=== PATIENT | male | born 1965 | race American Indian/Alaskan Native ===

== ENCOUNTER 2019-02-08 18:02 | Emergency (ER) | payer OTHER ==
--- NOTE | 2019-02-08 18:56 | EDM.PDOC ---
ED HPI GENERAL MEDICAL PROBLEM - General Chief Complaint: Back Pain or Injury Stated Complaint: BACK PAIN, BLEEDING Time Seen by Provider: 02/08/19 18:37 Source of Information: Reports: Patient History Limitations: Reports: No Limitations - History of Present Illness INITIAL COMMENTS - FREE TEXT/NARRATIVE: 53-year-old man with long-standing history of chronic lumbar back pain and right lumbar radiculopathy since accident in 2001 who reports that over the past year he has had increasing lower back pain and more symptoms of discomfort and numbness in his right leg. Today he reports the pain as an 8-9/10. It is worse with movement and with activity and also worse with palpation. He's had no bowel or bladder control problems. He has had some intermittent bright red blood in his stools (he reports dripping blood in the toilet after stools and with blood with wiping and pain and irritation in his perianal area) for some time. He denies any nausea or vomiting. He has no abdominal pain. He has had no fever. There has been no recent injury. The pain is a sharp, aching and throbbing pain with some spasms in his muscles in his back. He has taken nothing for his pain today. There are no other associated signs or symptoms. There are no other modifying factors. Onset: Other (Ongoing since 2001 but worsening over the past year per the patient.) Duration: Getting Worse Location: Reports: Back, Lower Extremity, Right Quality: Reports: Ache, Sharp, Throbbing Severity: Moderate (to bear) Improves with: Reports: Rest Worsens with: Reports: Other (Palpation), Movement Context: Reports: Other (As above) Associated Symptoms: Reports: No Other Symptoms Treatments [employer]: Reports: Other (see below) (Nothing) lower back Pain Score (Numeric/FACES): 10 - Related Data Allergies Allergy/AdvReac Type Severity Reaction Status Date / Time No Known Allergies Allergy Verified 02/08/19 18:15 Home Meds: Home Meds Aspirin [Children's Aspirin] 81 mg PO DAILY 05/20/13 [History] Omeprazole 20 mg PO DAILY 05/20/13 [History] Cyclobenzaprine [Flexeril] 10 mg PO TID PRN #15 tab 02/08/19 [Rx] Past Medical History HEENT History: Reports: Impaired Vision Cardiovascular History: Reports: CAD, High Cholesterol, Hypertension Gastrointestinal History: Reports: Cholelithiasis Psychiatric History: Reports: Addiction, Anxiety - Past Surgical History Cardiovascular Surgical History: Reports: Coronary Artery Stent Musculoskeletal Surgical History: Reports: ORIF (Right lower leg and right elbow ) Social & Family History - Family History Family Medical History: Noncontributory - Tobacco Use Smoking Status *Q: Former Smoker (States he quit 4-5 days ago) - Caffeine Use Caffeine Use: Reports: None - Alcohol Use Alcohol Use History: Yes Alcohol Use Comment: Has been heavy at times but states he has had no alcohol for the past 2 weeks. - Living Situation & Occupation Social History Comment: He is here with other family members including another person being seen for a painful condition today. ED ROS GENERAL - Review of Systems Review Of Systems: See Below Constitutional: Reports: No Symptoms HEENT: Reports: No Symptoms Respiratory: Reports: No Symptoms Cardiovascular: Reports: No Symptoms GI/Abdominal: Reports: Other (Bright red blood after stool with perianal irritation and discomfort with wiping as above.) : Reports: No Symptoms Musculoskeletal: Reports: Back Pain Skin: Reports: No Symptoms Neurological: Reports: Other (Right lumbar radiculopathy type symptoms) Psychiatric: Reports: Anxiety Hematologic/Lymphatic: Reports: No Symptoms Immunologic: Reports: No Symptoms ED EXAM,LOWER BACK PAIN/INJURY - Physical Exam Exam: See Below Exam Limited By: No Limitations General Appearance: Alert, WD/WN, No Apparent Distress Eye Exam: Bilateral Eye: EOMI, Normal Inspection, PERRL Ears: Normal External Exam Nose: Normal Inspection, Normal Mucosa, No Blood Throat/Mouth: Normal Inspection, Normal Lips, Normal Oropharynx, Normal Voice, No Airway Compromise Head: Atraumatic, Normocephalic Neck: Normal Inspection, Supple, Non-Tender, Full Range of Motion Respiratory/Chest: No Respiratory Distress, Lungs Clear, Normal Breath Sounds, No Accessory Muscle Use, Chest Non-Tender Cardiovascular: Normal Peripheral Pulses, Regular Rate, Rhythm, No JVD GI/Abdominal: Normal Bowel Sounds, Soft, Non-Tender, No Distention Back Exam: Normal Inspection, Muscle Spasm, Paraspinal Tenderness (In his lumbar back) Extremities: Normal Inspection, Normal Range of Motion, Non-Tender, No Pedal Edema, Normal Capillary Refill Neurological: Alert, Normal Mood/Affect, Normal Dorsiflexion, CN II-XII Intact, Normal Plantar Flexion, Normal Gait (He ambulated into the emergency department well without any problems.), No Motor/Sensory Deficits, Oriented x 3 Skin Exam: Warm, Dry, Intact, Normal Color, No Rash Course - Vital Signs Last Recorded V/S: Last Vital Signs Temp 36.7 C 02/08/19 18:15 Pulse 59 L 02/08/19 19:26 Resp 16 02/08/19 19:26 BP 150/79 H 02/08/19 19:26 Pulse Ox 97 02/08/19 19:26 - Orders/Labs/Meds Meds: Medications Discontinued Medications Generic Name Dose Route Start Last Admin Trade Name Freq PRN Reason Stop Dose Admin Cyclobenzaprine HCl 10 mg 02/08/19 18:58 02/08/19 19:03 Flexeril PO 02/08/19 18:59 10 mg ONETIME ONE Administration Ketorolac Tromethamine 60 mg 02/08/19 18:58 02/08/19 19:03 Toradol IM 02/08/19 18:59 60 mg ONETIME ONE Administration - Re-Assessments/Exams Free Text/Narrative Re-Assessment/Exam: 02/08/19 18:50: Patient with long-standing lower back pain since 2001. He reports a worsening of his back pain over the past year. His exam shows no evidence of weakness. He has had no urinary retention or bowel incontinence. He does report some constipation with some bright red blood with wiping and pain with wiping that is most probably hemorrhoids. He has been having this for some time as well. I have stressed with the patient that he needs to establish with a primary doctor for this chronic issue with his back and also his intermittent perianal bleeding. I have given the patient an injection of Toradol for is pain and Flexeril 10 mg by mouth. Departure - Departure Time of Disposition: 19:00 Disposition: Home, Self-Care 01 Condition: Good (Stable) Clinical Impression: Right lumbar radiculopathy, Rectal bleeding Chronic lower back pain Qualifiers: Back pain laterality: right Sciatica presence: with sciatica Sciatica laterality: sciatica of right side Qualified Code(s): M54.41 - Lumbago with sciatica, right side - Discharge Information Prescriptions: Cyclobenzaprine [Flexeril] 10 mg PO TID PRN #15 tab PRN Reason: Muscle spasm or muscle pain Instructions: Constipation, Adult, [id number], Sciatica, [id number], Chronic Back Pain, [id number], Rectal Bleeding, Oeow-et-[id number] Referrals: PCP,None [Primary Care Provider] - Forms: ED Department Discharge Additional Instructions: You need to arrange for a primary doctor and address the issues of your chronic back pain and chronic sciatica on the right side with them. You'll also need further workup into the bleeding from your anal area. You should take Colace ( [id number]) to soften your stool and you should also take MiraLAX (since [id number]) for constipation and you may use [id number] hemorrhoidal creams for the irritation in your perianal area. You may also take ibuprofen 600-800 mg by mouth every 6-8 hours as needed for pain. Medication as prescribed (Flexeril 10 mg). Back to the emergency department for bowel or bladder control problems, fever, leg weakness or any other concerning sign or symptom. For all pain-related issues, you'll need to go through your primary doctor.
[2019-02-08] MEDS ORDERED: Ketorolac 60 MG/2 ML SDV IM ONE (18:58)
[2019-02-08] MEDS ORDERED: Cyclobenzaprine 10 MG Tab PO ONE (18:58)
[2019-02-08 19:52] VITALS: BP 150/79; PULSE 59
== END 2019-02-08 19:26 | disposition home or self-care (01) ==
LOC: FB.ED 18:02
DX: M54.16 Radiculopathy, lumbar region (principal); M54.41 Lumbago with sciatica, right side; K62.5 Hemorrhage of anus and rectum; Z79.899 Other long term (current) drug therapy; Z87.891 Personal history of nicotine dependence; Z79.82 Long term (current) use of aspirin
CPT/HCPCS: 96372; 99283; A9270; J1885